=== PATIENT | female | born 1965 | race Caucasian/White ===

== ENCOUNTER 2017-06-02 08:23 | Emergency (ER) | payer MEDICAID ==
[~2017-06-02] VITALS: Ht 157.5 cm; Wt 81.0 kg
[~2017-06-02 08:23] MED LIST: HYDR-3533 PO; MACR100C2 PO; ZOFR4TAB PO
[2017-06-02 08:26] VITALS: BP 163/110; PULSE 110; RESP 16; TEMP 98.5; O2SAT 97
[2017-06-02] MEDS ORDERED: MEDR4PAK PO (09:36)
--- NOTE | 2017-06-02 09:37 | PD ---
HPI Chief Complaint: right hand numbness Time Seen by Provider: 09:13 Travel History International Travel<30 days: No Contact w/Intl Traveler<30days: No Traveled to known affect area: No History of Present Illness HPI The patient is a 51-year-old female who presents to the emergency department for numbness and tingling of the fourth and fifth digit of the right hand. The symptoms been ongoing for several weeks, progressing. The patient is right-hand dominant. The patient complains of numbness and tingling to the fourth and fifth digit, occasionally numbness and tingling to the ulnar aspect of the right hand in the right forearm. 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 She denies any numbness or tingling of the first and second digit. She denies any difficulty with extension of the wrist or flexion of the wrist. She denies any trauma to the right upper extremity. She denies any known history of neuropathy to the median or ulnar nerve. She does not work. She denies any repetitive movements that may exacerbated her symptoms. She denies any symptoms proximal to the elbow. She denies any focal deficits of the lower extremities or left upper extremity. Symptoms are mild, ongoing for several weeks, and there are no current alleviating or exacerbating factors. PFSH Past Medical History Depression: Yes Diabetes: Yes (TYPE 2) Diminished Hearing: No Hypertension: Yes Immunizations Current: Yes Past Surgical History Hysterectomy: Yes Other Surgery: Yes (tumor removed on left arm ) Social History Alcohol Use: No Tobacco Use: Yes (1 ppd) Substance Use: No Allergies-Medications (Allergen,Severity, Reaction): Coded Allergies: Sulfa (Sulfonamide Antibiotics) (Unverified Allergy, Severe, HIVES, ) naproxen (Unverified Allergy, Severe, SWELLING, 06/02/17) aspirin (Unverified Allergy, Intermediate, Hives, 06/02/17) Uncoded Allergies: NYQUIL (Allergy, Intermediate, Hives, 04/04/12) Reported Meds & Prescriptions Reported Meds & Active Scripts Active Lortab (Hydrocodone-Acetaminophen) 5-325 Mg Tab 1 Tab PO Q4H PRN Macrobid (Nitrofurantoin Monoh/Nitrofur Macro) 100 Mg Cap 100 Mg PO BID 10 Days Zofran (Ondansetron HCl) 4 Mg Tab 4 Mg PO Q6HR PRN Review of Systems Except as stated in HPI: all other systems reviewed are Neg General / Constitutional: No: Fever Musculoskeletal: Positive: Weakness Skin: No Rash Neurologic: Positive: Paresthesia, Sensory Disturbance Physical Exam Narrative GENERAL: Awake, alert, pleasant 51 year-old female who appears her stated age and is in no acute respiratory distress. SKIN: Focused skin assessment warm/dry. No rash noted of the right hand. HEAD: Atraumatic. Normocephalic. EYES: No injection or drainage. MUSCULOSKELETAL: No obvious deformities. No clubbing. No cyanosis. No edema. There is no obvious atrophy of the right hand when compared to the left. Mildly decreased strength with library customer service clerk of the right hand especially flexion of the fourth and fifth digit. Mild decreased strength of the interosseous muscles of the fourth and fifth digit. Patient is able to place her first and second digit together with good strength, however, strength between the first digit and fifth digit is decreased. She is able fully flex and extend the right hand. Positive right radial pulse. No tenderness over the anterior aspect of the right wrist on palpation and tapping. No tenderness over the medial aspect of the right elbow. NEUROLOGICAL: Awake and alert. No obvious cranial nerve deficits. Motor grossly within normal limits. Normal speech. Decreased sensation to soft touch over the fourth and fifth digit on the volar aspect of the right hand. Sensation is intact to the first and second digit, slightly decreased over the ulnar aspect of the third digit. Sensation is intact over the radial aspect of the right hand. PSYCHIATRIC: Appropriate mood and affect; insight and judgment normal. Data Data Last Documented VS Vital Signs Date Time Temp Pulse Resp B/P (MAP) Pulse Ox O2 Delivery O2 Flow Rate FiO2 06/02/17 08:26 98.5 110 16 163/110 (127) 97 MDM Medical Decision Making Medical Screen Exam Complete: Yes Emergency Medical Condition: Yes Medical Record Reviewed: Yes Differential Diagnosis Differential diagnosis includes ulnar neuropathy, median neuropathy, entrapment nerve, radiculopathy, herniated disc, CVA, TIA. Narrative Course Physical examination the patient's right upper extremity reveals decreased sensation of the fourth and fifth digit with mild decreased strength of the intrinsic hand muscles, especially affecting the fourth and fifth digit. It appears the patient has an ulnar neuropathy, unsure if this is at the wrist or elbow. Patient is allergic to aspirin and Naprosyn, will be placed on a Medrol Dosepak. She will be provided a mandatory referral to see hand surgery in case her weakness increases or she develops atrophy of the right hand. His symptoms persist she may need to see the specialist for definitive operative management if conservative therapy fails. Diagnosis Primary Impression: Ulnar neuropathy Qualified Codes: G56.21 - Lesion of ulnar nerve, right upper limb Patient Instructions: General Instructions Additional Instructions: Medications as directed. Follow-up with primary physician and hand surgery if symptoms persist. Avoid repetitive movements at the right elbow and wrist such as flexion of the right elbow, holding the phone for prolonged periods of time, or repetitive movements. Med/Other Pt SpecificInfo: Prescription(s) given Scripts Methylprednisolone Dosepak (Medrol Dosepak) 4 Mg Dspk 4 MG PO DIRECTED, #1 DSPK 0 Refills Per Pharmacist direction Prov: Kaleb Tejeda MD 06/02/17 Disposition: 01 DISCHARGE HOME Condition: Stable Kaleb Tejeda MD Jun 02, 2017 09:37
[2017-06-03] MEDS ORDERED: NORC5TAB PO (17:32)
== END 2017-06-02 09:50 | disposition home or self-care (01) ==
LOC: NEPD 08:23
DX: G56.21 Lesion of ulnar nerve, right upper limb (principal); E11.9 Type 2 diabetes mellitus without complications; F32.9 Major depressive disorder, single episode, unspecified; I10 Essential (primary) hypertension; F17.200 Nicotine dependence, unspecified, uncomplicated
CPT/HCPCS: 99283

== ENCOUNTER 2017-06-03 12:22 | Emergency (ER) | payer MEDICAID ==
[~2017-06-03] VITALS: Ht 157.5 cm; Wt 81.8 kg
[~2017-06-03 12:22] MED LIST changes: +MEDR4PAK PO
[2017-06-03 12:24] VITALS: BP 170/100; PULSE 104; RESP 16; TEMP 98.3; O2SAT 97
--- NOTE | 2017-06-03 16:12 | PD ---
HPI Chief Complaint: Numbness/Tingling Time Seen by Provider: 15:52 Travel History International Travel<30 days: No Contact w/Intl Traveler<30days: No Traveled to known affect area: No History of Present Illness HPI c/o tingling sensation to left forearm/hand onset today, no penaloza/visual changes that were acute/no lateralizing weakness, no pcp PFSH Past Medical History Depression: Yes Diabetes: Yes (TYPE 2) Diminished Hearing: No Hypertension: Yes Immunizations Current: Yes ?: Not Past Surgical History Hysterectomy: Yes Other Surgery: Yes (tumor removed on left arm ) Social History Alcohol Use: No Tobacco Use: Yes (1 ppd) Substance Use: No Allergies-Medications (Allergen,Severity, Reaction): Coded Allergies: Sulfa (Sulfonamide Antibiotics) (Unverified Allergy, Severe, HIVES, ) naproxen (Unverified Allergy, Severe, SWELLING, 06/02/17) aspirin (Unverified Allergy, Intermediate, Hives, 06/02/17) Uncoded Allergies: NYQUIL (Allergy, Intermediate, Hives, 04/04/12) Reported Meds & Prescriptions Reported Meds & Active Scripts Active Medrol Dosepak (Methylprednisolone) 4 Mg Dspk 4 Mg PO DIRECTED Per Pharmacist direction Lortab (Hydrocodone-Acetaminophen) 5-325 Mg Tab 1 Tab PO Q4H PRN Macrobid (Nitrofurantoin Monoh/Nitrofur Macro) 100 Mg Cap 100 Mg PO BID 10 Days Zofran (Ondansetron HCl) 4 Mg Tab 4 Mg PO Q6HR PRN Review of Systems Except as stated in HPI: all other systems reviewed are Neg Neurologic: Positive: Paresthesia Physical Exam Narrative GENERAL: SKIN: Warm and dry. HEAD: Atraumatic. Normocephalic. EYES: Pupils equal and round. No scleral icterus. No injection or drainage. ENT: No nasal bleeding or discharge. Mucous membranes pink and moist. NECK: Trachea midline. No JVD. CARDIOVASCULAR: Regular rate and rhythm. RESPIRATORY: No accessory muscle use. Clear to auscultation. Breath sounds equal bilaterally. GASTROINTESTINAL: Abdomen soft, non-tender, nondistended. MUSCULOSKELETAL: Extremities without clubbing, cyanosis, or edema. No obvious deformities. NEUROLOGICAL: Awake and alert. No obvious cranial nerve deficits. Motor grossly within normal limits. Five out of 5 muscle strength in the arms and legs. Normal speech. PSYCHIATRIC: Appropriate mood and affect; insight and judgment normal. Data Data Last Documented VS Vital Signs Date Time Temp Pulse Resp B/P (MAP) Pulse Ox O2 Delivery O2 Flow Rate FiO2 06/03/17 12:24 98.3 104 16 170/100 (123) [address] Cerv Spine W/O Contrast (06/03/17 15:52) MDM Medical Decision Making Medical Screen Exam Complete: Yes Emergency Medical Condition: Yes Medical Record Reviewed: Yes Differential Diagnosis spinal cord compression v peripheral neuropathy Narrative Course CT FINDINGS NOTED, MANDATORY REFERRAL OUTPATIENT NEUROSURGERY FOR FURTHER CARE. Diagnosis Primary Impression: peripheral paresthesia Referrals: Carter Marmolejo MD FOR FURTHER EVALUATION OF YOUR ABNORMAL CT FINDINGS CAUSING YOUR ARM NUMBNESS Scripts Hydrocodone-Acetaminophen ([place]) 5 Mg-325 Mg Tab 1 TAB PO Q6H Y for PAIN, #14 TAB 0 Refills Prov: Jonn Nicole MD 06/03/17 Disposition: 01 DISCHARGE HOME Condition: Stable Jnon Nicole MD Jun 03, 2017 16:12
--- NOTE | 2017-06-03 16:40 | RADRPT ---
EXAM DATE/TIME: 06/03/2017 16:15 [facility] COMPARISON: No previous studies available for comparison. INDICATIONS : Parasthesia C7-T1 region with no trauma. RADIATION DOSE: 42.75 CTDIvol (mGy) MEDICAL HISTORY : Hypertension. SURGICAL HISTORY : Hysterectomy. ENCOUNTER: Initial ACUITY: 2 days PAIN SCALE: 4/10 LOCATION: Bilateral upper extremity TECHNIQUE: Volumetric scanning of the cervical spine was performed. Multiplanar reconstructions in the sagittal, coronal and oblique axial planes were performed. Using automated exposure control and adjustment o f the mA and/or kV according to patient size, radiation dose was kept as low as reasonably achievable to obtain optimal diagnostic quality images. DICOM format image data is available electronically f or review and comparison. FINDINGS: VERTEBRAE: Normal vertebral body height. ALIGNMENT: No evidence of subluxation. C2-C3: The bony spinal canal is normal in size. No evidence of disc bulge or herniation. The neural forami na are bilaterally patent. C3-C4: The bony spinal canal is normal in size. No evidence of disc bulge or herniation. The neural forami na are bilaterally patent. C4-C5: Partial calcification of the posterior longitudinal ligament. Prominent anterior osteophytes. No sign ificant central canal or neural foraminal stenosis. C5-C6: Mild disc space loss. Mild posterior osteophyte complex with slight effacement of the anterior thecal sac. No significant neural foraminal stenosis. C6-C7: Mild disc space loss with posterior osteophyte complex resulting in mild effacement of the intratheca l sac. Neuroforamina are patent. C7-T1: The bony spinal canal is normal in size. No evidence of disc bulge or herniation. The neural forami na are bilaterally patent. T1-T2: Sagittal images demonstrate prominent facet osteophytes with resultant effacement of the posterior ce ntral canal resulting in moderate spinal canal stenosis. Central canal measures approximately 8 mm. T here is also moderate to severe bilateral neural foraminal stenosis. CONCLUSION: 1. Mild degenerative spondylosis of the cervical spine with partial opacification of the posterior lo ngitudinal ligament without significant central canal or neural foraminal stenosis. 2. Prominent facet osteophytes at T1-2 with resultant moderate spinal canal stenosis and moderate-sev ere bilateral neural foraminal stenosis. Davon Palacios MD on June 03, 2017 at 16:31 Board Certified Radiologist. This report was verified electronically.
[2017-06-03] MEDS ORDERED: NORC5TAB PO (17:32)
== END 2017-06-03 18:22 | disposition home or self-care (01) ==
LOC: NEPD 12:22
DX: R20.2 Paresthesia of skin (principal); F17.200 Nicotine dependence, unspecified, uncomplicated
CPT/HCPCS: 72125; 99284